=== PATIENT | female | born 1950 | race Two or more races ===

== ENCOUNTER 2025-03-21 09:40 | Outpatient (AMB) | payer MEDICARE, MEDICAID, SELFPAY ==
--- OUTSIDE RECORDS SUMMARY | 2025-03-18 10:45 | XMS_ITS | Encounter Summary ---
Author Organization [facility] Address [address] [place] [address] Care Team Providers Care Revenue Stamper Name Role Phone Parker Kyle MD Primary Care Provider [phone] Reason for Visit * Reason Comments Follow-up Pain * Consultation (Routine) - Authorized Specialty Diagnoses / Procedures Referred By Manjeet sanon Referred To Contact Orthopaedic Surgery Diagnoses Chronic right shoulder pain Arthritis of right shoulder Fay Piña, KAMLA [address] [place] [id number] Phone: tel: fax: Cliff Allen PA [address] [place] [phone] Phone: tel: fax: Referral ID Status Reason Start Date Expiration Date Visits Requested Visits Authorized [id number] Authorized Specialty Services Required 12/10/2024 12/10/2025 12 12 Encounter Details Date Type Department Care Team (Late st Contact Info) Description 03/18/2025 10:45 AM EST Office Visit Orthopedics - [address] [phone] Cliff Allen PA [address] [place] [phone] Chronic right shoulder pain (Primary Dx); Right-sided low back pain with right-sided sciatica, unspecified chronicity Social History Tobacco Use Types Packs/Day Years Used Date Smoking Tobacco: Never Smokeless Tobacco: Never Tobacco Cessation:Counseling Given: Not Answered Alcohol Use Standard Drinks/Week Comments No 0 (1 standard drink = 0.6 oz pur e alcohol) Interpersonal Safety Answer Date Record ed Physical Abuse Unrecognized value 03/12/2025 Verbal Abuse Unrecognized value 03/12/2025 Comments No Sex and Gender Information Value Date Recorded Sex Assigned at Female 03/12/2025 9:00 AM EST Legal Sex Female 1:53 PM EST Gender Identity Female 03/12/2025 9:00 AM EST Sexual Orientation Straight 03/12/2025 9: 00 AM EST documented as of this encounter Last Filed Vital Signs Vital Sign Reading Time Taken Comments Blood Pressure - - Pulse - - Temperature - - Respiratory Rate 16 03/18/2025 10:22 AM EST Oxygen Saturation - - Inhaled Oxygen Concentration - - Weight 68.5 kg (151 lb) 03/18/2025 10:22 AM EST Height 157.5 cm (5' 2 ) 03/18/2025 10:22 AM EST Body Mass Index 27.62 03/18/2025 10:22 AM EST documented in this encounter Progress Notes * MICHELET Trevino - 03/18/2025 10:45 AM EST CHIEF COMPLAINT: Follow-up and Pain of the Right Shoulder had concerns including Follow-up and Pain of the Right Shoulder. IDENTIFIER: Rohini Farah is a 74 y.o. old female. HPI: Rohini Farah is here for follow up on right shoulder pain. Patient returns today. Overall the right shoulder is pretty much completely better. Able to move the shoulder without any pain and perform activities without any issues. The right sided low back pain is improved but not resolved. Patient has ongoing physical therapy scheduled and is seeing physiatry in a few days PHYSICAL EXAM: Vitals: 03/18/25 1022 Resp: 16 Weight: 68.5 kg (151 lb) Height: 1.575 m (62 ) Patient demonstrates full pain-free range of motion of the right shoulder without any issues Currently IMPRESSION AND PLAN 1. Chronic right shoulder pain 2. Right-sided low back pain with right-sided sciatica, unspecified chronicity 1. Chronic right shoulder pain (Primary) Currently pain-free can observe 2. Right-sided low back pain with right-sided sciatica, unspecified chronicity Pain has reduced but still present. Will be following soon with physiatry No orders of the defined types were placed in this encounter. ROS: GENERAL: No malaise, significant weight loss or fever HEENT: No changes in hearing or vision, nose bleeds or other nasal problems NECK: No lumps, goiter, pain or significant neck swelling RESPIRATORY: No cough, wheezing or shortness of breath CARDIOVASCULAR: No chest pain, leg swelling or palpitations GI: No abdominal discomfort, blood in stools or black stools : No dysuria, frequency or incontinence MUSCULOSKELETAL: See HPI. SKIN: No lesions, rash or itching NEURO: No persistent headache, syncope, seizures, weakness or numbness Remainder of systems noncontributory. PAST MEDICAL HISTORY: Patient Active Problem List Diagnosis Date Noted History of colon cancer 03/14/2024 Asthma 02/06/2024 Dysphagia 02/06/2024 Overweight (BMI 25.0-29.9) 07/15/2021 Renal cyst, right 08/22/2017 Tubular adenoma of colon 08/22/2017 Primary osteoarthritis of right knee 06/08/2017 Chronic constipation 10/10/2012 Allergic rhinitis 10/13/2011 Glaucoma 09/05/2007 Diabetes mellitus type 2, uncomplicated ([facility] V24, [facility] V28) 03/21/2007 Pure hypercholesterolemia 03/21/2007 Surgical History[1] SOCIAL HISTORY: Social History Tobacco Use Smoking status: Never Smokeless tobacco: Never Substance Use Topics Alcohol use: No FAMILY HISTORY: Family History[2] MEDICATIONS DISCONTINUED/REORDERED: Medications Discontinued During This Encounter Medication Reason meclizine (ANTIVERT) 25 mg tablet Side effects ACTIVE MEDICATIONS: Medications Taking[3] ALLERGIES: Allergies[4] The details of the visit were reviewed with the patient. Pertinent history, and objective findings were reviewed, along with the diagnoses: Rohini Farah acknowledges understanding of the above plan and agrees to follow recommendations and/or take medications as prescribed. No follow-ups on file. MICHELET Trevino [1] Past Surgical History: Procedure Laterality Date BREAST BIOPSY PROCEDURE: BX BREAST; PERC NEEDLE CORE W/IMAG GUID; COMMENT: right x 2 BREAST LUMPECTOMY Right PROCEDURE: ---- BREAST LUMP BIOPSY ----; COMMENT: has had 2, last one done about 2013 CATARACT EXTRACTION Left 02/2017 PROCEDURE: HISTORICAL CATARACT REMOVAL COLON SURGERY 2014 COLONOSCOPY 11/18/2016 PROCEDURE: HISTORICAL COLONOSCOPY; COMMENT: repeat yearly, + colon cancer COLONOSCOPY 03/22/2019 PROCEDURE: HISTORICAL COLONOSCOPY; COMMENT: tiny polyp COLONOSCOPY 03/11/2021 PROCEDURE: HISTORICAL COLONOSCOPY; COMMENT: sigmoid tubular adenoma and diverticulosis EYE SURGERY PROCEDURE: TN TRABECULOPLASTY BY LASER SURGERY EYE SURGERY implants in eyes KNEE SURGERY Left 2006 PROCEDURE: HISTORICAL KNEE SURGERY; COMMENT: meniscus repair OTHER SURGICAL HISTORY 1983 PROCEDURE: TN INJECTION SINUS TRACT DIAGNOSTIC OTHER SURGICAL HISTORY 2013 PROCEDURE: TN COLECTOMY PARTIAL W/ANASTOMOSIS OVARIAN CYST REMOVAL 2000 PROCEDURE: TN OVARIAN CYSTECTOMY UNI/BI; COMMENT: adhesions - colon repair? PARTIAL HYSTERECTOMY 06/1989 PROCEDURE: TN SUPRACERVICAL ABDL HYSTER W/WO RMVL TUBE OVARY; COMMENT: Also had LSO [2] Family History Problem Relation Name Age of Onset Other (Other: skin cancer) Mother thyroid cancer Hypertension Father Other (Other: skin cancer) Sister ?unsure what kind Other (Other: prostate cancer) Brother No Known Problems Son Mental illness Son No Known Problems Daughter Other (Other: colon cancer) Other 2 nieces and one nephew; daughter of a cousin. Maternal Uterine cancer Other Tessie 32 Breast cancer Neg Hx Ovarian cancer Neg Hx [3] Outpatient Medications Marked as Taking for the 03/18/25 encounter (Office Visit) with MICHELET Trevino Medication Sig Dispense Refill Accu-Chek Softclix Lancets USE DIRECTED TO TEST BLOOD SUGAR TWO (2) TIMES A DAY. E11.9 - REPLACES ONETOUCH 100 each 12 acetaminophen (TYLENOL 8 HOUR) 650 mg 8 hr tablet Take 1 Tablet by mouth every 8 hours as needed for Pain. ascorbic acid (VITAMIN C) 1,000 mg tablet Take 1,000 mg by mouth daily. bisacodyL (DULCOLAX) 5 mg EC tablet Take 2 tablets by mouth right before beginning bowel prep. See instructions provided by the office 2 tablet 0 blood sugar diagnostic (Accu-Chek Guide test strips) test strip USED TEST BLOOD SUGAR TWO (2) TIMESA DAY. E11.9 - REPLACES ONETOUCH 200 each 5 blood-glucose meter (Accu-Chek Guide Glucose Meter) [facility] [place] DIRECTED TO TEST BLOOD SUGAR TWO (2) TIMES A DAY. E11.9 - REPLACES ONETOUCH 1 kit 0 cholecalciferol (VITAMIN D-3) 25 mcg (1,000 unit) tablet Take 1,000 Units by mouth daily. ibuprofen (ADVIL,MOTRIN) 600 mg tablet Take 1 tablet (600 mg total) by mouth every 6 (six) hours ifneeded for moderate pain. lidocaine (LIDODERM) 5 % patch Apply 1 patch topically 1 (one) time each day. Remove & discard patch within 12 hours or as directed by . 30 patch 0 metFORMIN XR (GLUCOPHAGE-XR) 500 mg 24 hr tablet TAKE 2 TABLETS IN THE MORNING AND 2 TABLETS IN THEEVENING WITH FOOD. 360 tablet 1 multivit-min/ferrous fumarate (MULTI VITAMIN ORAL) None Entered polyethylene glycol (Golytely) 236-22.74-6.74 -5.86 gram solution Take 4L by mouth once for one dose. May substitue any PEG. Starting at 2PM the day before your procedure drink 1 8oz glasses at your own pace until you complete half of the gallon. Finish 2nd half of the gallon at 8PM. 4000 mL 0 propylene glycol-glycerin (SOOTHE) 0.6-0.6 % dropperette apply to the eye daily as needed. RED YEAST RICE ORAL Take 2 capsules by mouth 2 (two) times a day. 240 mg Capsules simvastatin (ZOCOR) 20 mg tablet Take 1 tablet (20 mg total) by mouth at bedtime. [4] Allergies Allergen Reactions Morphine Sulfate Anaphylaxis Pseudoephedrine Hcl Itching documented in this encounter Plan of Treatment Upcoming Encounters Date Type Department Care Team (Late st Contact Info) Description 04/02/2025 11:30 AM EST Treatment [address] [phone] Ba Reyes, ROSA ELENA 04/05/2025 10:30 AM EST Treatment [address] [phone] Ba Reyes, ROSA ELENA 04/09/2025 10:15 AM EST Treatment [address] [phone] Ba Reyes, ELECTRICAL TECHNICIAN INSTRUCTOR 04/11/2025 10:15 AM EST Treatment [facility] [address] [phone] Ba Reyes, ELECTRICAL TECHNICIAN INSTRUCTOR 04/15/2025 11:15 AM EST Treatment [facility] [address] [phone] Eric Torres, PT [address] [place] [address] 06/18/2025 10:45 AM EDT Office Visit Endocrinology [address] [phone] Abby Alberto PA [address] [place] [address] 07/22/2025 11:30 AM EDT Office Visit Adult Medicine [address] [phone] Parker Kyle MD [address] [place] [address] 07/23/2025 1:20 PM EDT Appointment Radiology Department - [address] [phone] documented as of this encounter Goals Goal Patient Goal Type Associated Problems Recent Progress Patient-Stated? Author feel better General Improving( 10:50 AM EST) Yes Eric Torres, PT PT STG x 8 visits from [facility] on 01/23/2025 General No Eric Torres, PT Note: [x] = goal MET [] = goal NOT MET [x] Pt will improve lumbar flexion to 60 degrees to allow dressing LE without assist, [] Pt will report average pain level decrease of 2 /10, [] Pt will wake less than 1 a night due to back pain, [] Pt will require no assist in LE dressing due to back pain, [] Pt will be able to stand fully erect immediately after sit to stand [x] Pt will be able to perform a full range bridge to allow improved bed mobility Shoulder goals added: 02/13/2025 [] Pt will increase appleys scratch test IR to T 6 B to allow clasping bra, [x] Pt will be able to wash reach back of head to wash hair prn, [x] Pt will report an average shoulder pain level decrease of 2/10, [x] Pt will increase left shoulder abd active ROM to 90 degrees, [] Pt will increase right shoulder flexion active ROM to 160 degrees, [x] Pt will increase left shoulder flexion active ROM to 130 degrees, [x] Pt will improve bilaterally shoulder ER strength to 4+/5 , [x] Pt will improve right shoulder abd strength to 4+/5 [x] Pt will improve left shoulder abd strength to 4-/5 PT LTG x 16 visits from [facility] on 01/23/2025 General Improving( 10:50 AM EST) Eric Moreno, PT Note: [x] = goal MET [] = goal NOT MET [] Pt will be able to sit through a 60 movie, [] Pt will wake less than 3 times a wk due to back pain , [] Pt will be able to negotiate stairs reciprocally without limitation due to back pain , [] Pt will be able to stand fully erect immediately after sit to stand [] Pt will be able to rotate through trunk prn [] Pt will be able to demonstrate proper SPC technique [x] = goal MET [] = goal NOT MET Added 02/13/2025 [x] = goal MET [] = goal NOT MET [] Pt will be able to reach back seat with either shoulder, [] Pt will be able to reach overhead with either shoulder o turn on/off overhead lighting , [] Pt will be able to steer/drive with bilaterally UE, [] Pt will be able to reach top shelving with bilaterally UE in order to place/remove dishes , [] Pt will be able to open/close car door with involved UE prn, [] Pt will have no difficulty with seatbelt due to shoulder Sx, [] Pt will be able to vacuum at least 45 min without having to rest due to pain Autogenerated Goal Care Plan Autogenerated Problem No Zenaida Ortiz documented as of this encounter Visit Diagnoses Diagnosis Chronic right shoulder pain- Primary Pain in joint, shoulder region Right-sided low back pain with right-sided sciatica, unspecified chronicity documented in this encounter Discontinued Medications Medication Sig Discontinue Reason Start Date End Da te meclizine (ANTIVERT) 25 mg tablet Take 1 tablet (25 mg total) by mouth 3 (three) times a day if needed for dizziness. Side effects 12/25/2024 03/18/2025 documented as of this encounter Additional Health Concerns Active Problems Noted Date Diagnosed Date Autogenerated Problem 02/19/2025 Assessment Noted Time PHQ-9 Depression Total Score: 1 06/28/19 25 10:31 AM EDT A fall risk assessment has been complete d for the patient 06/27/2024 10:31 AM EDT documented as of this encounter Care Teams Revenue Stamper Relationship Specialty Start Date End Date Parker Kyle MD [address] [place] [phone] PCP - General Internal Medicine 07/09/20 documented as of this encounter
[2025-03-21 09:41] VITALS: BMI 27.4
--- NOTE | 2025-03-21 09:41 | A.PHYSOV_ITS ---
Vital Signs 03/21/25 09:41 Height 5 ft 2 in Weight 150 lb BMI 27.4 Intake Visit Reasons: NPV Radha Ref- rt sided low back w/sciatica Intake Note: Patient is a 74 year old female her for a new patient office visit. Patient has been referred for right lower back pain with sciatica. 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 She reports pain on the right side of her lower back, which sometimes radiates into her leg. She rates her pain as a 6 out of 10 today. The patient reports that the pain improves after she walks for a little while. She takes ibuprofen for the pain and has been attending physical therapy, which has provided some improvement. She has about five or six more physical therapy sessions scheduled. I reviewed the referring provider's no prior consultation. Pain Description - Location: Lower right back. - Radiation: Pain sometimes radiates into her leg. - Severity: The patient rates her current pain as 6 out of 10. - Alleviating Factors: Pain improves after walking for a short period. Results - Imaging: A prior X-ray of the back was performed, which only visualized the bone. [facility] Surgical History History of partial hysterectomy History of ovarian cystectomy H/O colectomy H/O: knee surgery History of eye surgery History of cataract surgery S/P breast lumpectomy Social History Alcohol intake: current Alcohol intake frequency: does not drink Patient Tobacco Use Status: Never used Tobacco Use of substances other than those prescribed or required for medical reasons: No Review of Systems Narrative Review of Systems - Musculoskeletal: Reports lower back pain. - Neurological: Reports pain radiating to the leg. Physical Exam Exam Exam: Physical Exam - Back: Tenderness to palpation over the lumbar spine. - Neurologic: Straight leg raise test elicits tension in one leg; the test is negative in the contralateral leg. - Musculoskeletal: Full strength with foot flexion/extension and thigh elevation bilaterally. Neurovascularly intact bilateral lower extremities. Vital Signs: BMI result Body Mass Index 27.4 Assessment & Plan Assessment & Plan (1) Lumbar radiculopathy: Code(s): M54.16 - Radiculopathy, lumbar region Category: Medical (2) Lumbar spondylosis: Code(s): M47.816 - Spondylosis without myelopathy or radiculopathy, lumbar region Category: Medical Plan Pain Management - Analgesia: The patient takes ibuprofen for pain and reports her current pain level is 6 out of 10. - Activities of Daily Living: The patient has been attending and improving with physical therapy. Plan Patient was informed and verbally consented to the use of an ambient scribe for clinic note documentation during this visit. 1. Low Back Pain The patient is advised to continue with physical therapy as a conservative treatment. She should schedule a follow-up appointment for approximately three weeks, after she has completed her remaining sessions. If the pain does not improve with therapy, an MRI of the lumbar spine will be ordered to further evaluate the discs, nerves, and spinal cord. Discussion Notes I discussed my recommendation to continue with physical therapy, explaining that it is a conservative treatment option that does not involve drugs or needles. I advised the patient to return for a follow-up visit if her pain does not improve after completing her course of therapy. I informed her that if her symptoms persist, I will order an MRI of her back for a more detailed assessment of the discs and nerves, explaining that this imaging is more comprehensive than her previous X-ray. The patient and her safety and security officer voiced understanding and had no further questions. Patient Instructions - Continue with your physical therapy as prescribed. - If your pain does not get better after you finish therapy, please call our office to schedule a follow-up appointment. - We can schedule your follow-up appointment for about 3 weeks from now. - If your pain continues, we will order an MRI scan of your back to get a better look at what might be causing it. Coding Level of Care Code Tele New Pt Level 4 (61249) Diagnoses Lumbar radiculopathy M54.16 Lumbar spondylosis M47.816
--- OUTSIDE RECORDS SUMMARY | 2025-03-21 11:22 | XMS_ITS | Clinical Summary ---
Author Organization Patient Business Ser [facility] [place] Address [address] [place] [address] Care Team Providers Care Culture Manager Name Role Phone Parker Kyle MD Primary Care Provider [phone] Allergies Active Allergy Reactions Criticality Noted Date Comments Morphine Sulfate Anaphylaxis High 10/31/2009 Pseudoephedrine Hcl Itching 03/21/2007 Medications acetaminophen (TYLENOL 8 HOUR) 650 mg 8 hr tablet Take 1 Tablet by mouth every 8 hours as needed for Pain. 11/09/19 24 Active cholecalciferol (VITAMIN D-3) 25 mcg (1,000 unit) tablet Take 1,000 Units by mouth daily. Active propylene glycol-glycerin (SOOTHE) 0.6-0.6 % dropperette apply to the eye daily as needed. Active ascorbic acid (VITAMIN C) 1,000 mg tablet Take 1,000 mg by mouth daily. Active multivit-min/fe rrous fumarate (MULTI VITAMIN ORAL) None Entered Active ibuprofen (ADVIL,MOTRIN) 600 mg tablet Take 1 tablet (600 mg total) by mouth every 6 (six) hours if needed for moderate pain. 10/12/19 24 Active lidocaine (LIDODERM) 5 % patchIndication s:Arthritis of right shoulder Apply 1 patch topically 1 (one) time each day. Remove & discard patch within 12 hours or as directed by MD. 30 patch 11/08/19 25 Active blood-glucose meter (Accu-Chek Guide Glucose Meter) miscIndications :Type 2 diabetes mellitus without complication, without long-term current use of insulin ([facility] V24, [facility] V28) USE DIRECTED TO TEST BLOOD SUGAR TWO (2) TIMES A DAY. E11.9 - REPLACES ONETOUCH 1 kit 11/23/19 25 Active Accu-Chek Softclix LancetsIndicati ons:Type 2 diabetes mellitus without complication, without long-term current use of insulin ([facility] V24, [facility] V28) USE DIRECTED TO TEST BLOOD SUGAR TWO (2) TIMES A DAY. E11.9 - REPLACES ONETOUCH 100 each 12 11/23/19 Active metFORMIN XR (GLUCOPHAGE-XR) 500 mg 24 hr tablet TAKE 2 TABLETS IN THE MORNING AND 2 TABLETS IN THE EVENING WITH FOOD. 360 tablet 1 01/22/20 Active RED YEAST RICE ORAL Take 2 capsules by mouth 2 (two) times a day. 240 mg Capsules Active blood sugar diagnostic (Accu-Chek Guide test strips) test stripIndication s:Type 2 diabetes mellitus without complication, without long-term current use of insulin ([facility] V24, [facility] V28) USED TEST BLOOD SUGAR TWO (2) TIMES A DAY. E11.9 - REPLACES ONETOUCH 200 each 5 02/15/20 Active polyethylene glycol (Golytely) 236-22.74-6.74 -5.86 gram solution Take 4L by mouth once for one dose. May substitue any PEG. Starting at 2PM the day before your procedure drink 1 8oz glasses at your own pace until you complete half of the gallon. Finish 2nd half of the gallon at 8PM. 4000 mL 02/27/20 25 Active bisacodyL (DULCOLAX) 5 mg EC tablet Take 2 tablets by mouth right before beginning bowel prep. See instructions provided by the office 2 tablet 02/27/20 25 Active simvastatin (ZOCOR) 20 mg tablet Take 1 tablet (20 mg total) by mouth at bedtime. Active meclizine (ANTIVERT) 25 mg tablet Take 1 tablet (25 mg total) by mouth 3 (three) times a day if needed for dizziness. 30 tablet 1 12/26/19 25 025 Discontin ued(Side effects) Active Problems Problem Noted Date Diagnosed Date History of colon cancer 03/14/2024 Asthma 02/06/2024 Dysphagia 02/06/2024 Overweight (BMI 25.0-29.9) 07/15/2021 Renal cyst, right 08/22/2017 Tubular adenoma of colon 08/22/2017 Overview (02/06/2024): multiple Primary osteoarthritis of right knee 06/08/2017 Chronic constipation 10/10/2012 Allergic rhinitis 10/13/2011 Glaucoma 09/05/2007 Diabetes mellitus type 2, uncomplicated 03/21/20 07 Overview (02/06/2024): Started 2004 Assessment & Plan (06/27/2024 11:00 AM EDT): Pure hypercholesterolemia 03/21/2007 Assessment & Plan (06/27/2024 11:00 AM EDT): Encounters Date Type Department Care Team Description 03/18/2025 10:45 AM EST Office Visit Orthopedics [address] [phone] Cliff Allen PA Chronic right shoulder pain (Primary Dx); Right-sided low back pain with right-sided sciatica, unspecified chronicity 03/13/2025 10:[address] [facility] [address] [phone] Eric Torres M, PT Right-sided low back pain with right-sided sciatica, unspecified chronicity (Primary Dx); Bilateral shoulder pain, unspecified chronicity 03/12/2025 9:55 AM EST Anesthesia Event [facility] End[facility] [address] [place] [address] Jeovanny Parks MD 03/12/2025 9:03 AM EST - 03/12/2025 11:59 PM EST Hospital Encounter [facility] [address] [place] [address] Judy William MD Georgette, Nathaniel, CRNA Dasilva, John E, MD History of colon cancer Discharge Disposition: Home or Self Care 03/06/2025 11:00 AM EST Treatment [address] [phone] Deni Lua PTA Right-sided low back pain with right-sided sciatica, unspecified chronicity (Primary Dx) 03/04/2025 10:30 AM EST [address] [phone] Ba Reyes, CLINICAL SOCIAL WORK AIDE Right-sided low back pain with right-sided sciatica, unspecified chronicity (Primary Dx); Bilateral shoulder pain, unspecified chronicity 02/27/2025 10:30 AM EST Treatment [address] [phone] Ba Reyes, CLINICAL SOCIAL WORK AIDE Right-sided low back pain with right-sided sciatica, unspecified chronicity (Primary Dx) 02/25/2025 10:30 AM EST Treatment [address] [phone] Ba Reyes, CLINICAL SOCIAL WORK AIDE Right-sided low back pain with right-sided sciatica, unspecified chronicity (Primary Dx); Bilateral shoulder pain, unspecified chronicity 02/18/2025 11:30 AM EST Treatment [address] [phone] Ba Reyes CLINICAL SOCIAL WORK AIDE Right-sided low back pain with right-sided sciatica, unspecified chronicity (Primary Dx); Bilateral shoulder pain, unspecified chronicity 02/15/2025 12:30 PM EST [address] [phone] Ba Reyes, CLINICAL SOCIAL WORK AIDE Right-sided low back pain with right-sided sciatica, unspecified chronicity (Primary Dx); Bilateral shoulder pain, unspecified chronicity 02/14/2025 10:30 AM EST Office Visit [address] [phone] Abby Alberto PA Type 2 diabetes mellitus without complication, without long-term current use of insulin (CMS/HCC V24, CMS/HCC V28) (Primary Dx); Pure hypercholesterolemia 02/13/2025 10:[address] [facility] [address] [phone] Melissa, Kvng, PT Right-sided low back pain with right-sided sciatica, unspecified chronicity (Primary Dx); Bilateral shoulder pain, unspecified chronicity 02/12/2025 Telephone Endocrinology [address] [phone] Abby Alberto PA 02/11/2025 2:58 PM EST - 02/11/2025 8:30 PM EST Emergency [facility] Emergency [address] [place] [phone] Discharge Disposition: Left Against Medical Advice 02/04/2025 11:30 AM EST Office Visit Orthopedics [address] [phone] Cliff Allen PA Chronic right shoulder pain (Primary Dx); Acute pain of left shoulder 01/30/2025 Results Follow-Up [address] [phone] Abby Alberto PA 01/24/2025 11:00 AM EDT Office Visit Adult Medicine [address] [phone] Yoanna Tolentino PA Type 2 diabetes mellitus with other specified complication, unspecified whether predatory animal exterminator insulin use (CMS/HCC V24, CMS/HCC V28) (Primary Dx); Pure hypercholesterolemia; Adverse effect of vaccine, initial encounter 01/23/2025 12:[address] [facility] [address] [phone] Melissa, Kvng, PT Right-sided low back pain with right-sided sciatica, unspecified chronicity 12/25/2024 10:30 AM EDT Office Visit Adult Medicine [address] [phone] Fay Piña NP Dizziness (Primary Dx); Vertigo 12/24/2024 10:59 AM EDT - 12/24/2024 11:59 PM EDT Hospital Encounter XRAY [address] [phone] Right-sided low back pain with right-sided sciatica, unspecified chronicity Discharge Disposition: Home or Self Care 12/24/2024 10:45 AM EDT Office Visit Orthopedics [address] [phone] Cliff Allen PA Chronic right shoulder pain (Primary Dx); Right-sided low back pain with right-sided sciatica, unspecified chronicity 12/24/2024 Nurse Triage [address] [phone] Parker Kyle MD from Last 3 Months Immunizations Immunization Administration Dates Next Due Influenza trivalent, 0.5mL ( Fluad) 65yo and older 01/22/2022,01/14/2021,12/29/2019,01/06,01/11/2018,01/21/2017 Influenza trivalent, 0.5mL ( Fluzone High-dose) 65yo and older 01/19/2025 Influenza trivalent, 0.5mL, preservative free (Fluarix; FluLaval; Fluzone) ages 6mo and older (Afluria) 3 years and older 12/29/2019,01/05/2016,01/19/2015,01/15,01/02/2013,01/31/2012,01/04/2011 ,02/06/2010,12/24/2008,01/10/2008 Influenza, Unspecified 12/10/2022 Pneumococcal conjugate 13 va lent (Prevnar 13, PCV13) 2mo and older 08/29/2014 Pneumococcal polysaccharide 23 valent (Pneumovax 23) 2yo and older 07/15/2021,07/20/2018,03/21/2007 Tdap Tetanus diptheria acell ular pertussis (Boostrix; Adacel) 7yo and older 03/21/2007 Zoster Live 08/30/2012 Zoster recombinant (Shingrix ) 19yo and older 03/12/2022,12/18/2021 Surgical History Surgery Date Site/Laterality Comments PARTIAL HYSTERECTOMY 06/1989 PROCEDURE: AK SUPRACERVICAL ABDL HYSTER W/WO RMVL TUBE OVARY; COMMENT: Also had LSO OVARIAN CYST REMOVAL 2000 PROCEDURE: AK OVARIAN CYSTECTOMY UNI/BI; COMMENT: adhesions - colon repair? OTHER SURGICAL HISTORY 1983 PROCEDURE: AK INJECTION SINUS TRACT DIAGNOSTIC EYE SURGERY PROCEDURE: AK TRABECULOPLASTY BY LASER SURGERY OTHER SURGICAL HISTORY 2013 PROCEDURE: AK COLECTOMY PARTIAL W/ANASTOMOSIS KNEE SURGERY 2006 Left PROCEDURE: HISTORICAL KNEE SURGERY; COMMENT: meniscus repair CATARACT EXTRACTION 02/2017 Left PROCEDURE: HISTORICAL CATARACT REMOVAL BREAST LUMPECTOMY Right PROCEDURE: ---- BREAST LUMP BIOPSY ----; COMMENT: has had 2, last one done about 2013 COLONOSCOPY 11/18/2016 PROCEDURE: HISTORICAL COLONOSCOPY; COMMENT: repeat yearly, + colon cancer BREAST BIOPSY PROCEDURE: BX BREAST; PERC NEEDLE CORE W/IMAG GUID; COMMENT: right x 2 COLONOSCOPY 03/22/2019 PROCEDURE: HISTORICAL COLONOSCOPY; COMMENT: tiny polyp COLONOSCOPY 03/11/2021 PROCEDURE: HISTORICAL COLONOSCOPY; COMMENT: sigmoid tubular adenoma and diverticulosis COLON SURGERY 04/04/2013 - 04/03/2014 EYE SURGERY implants in eyes Medical History Medical History Date Comments Allergic rhinitis 10/13/2011 DX:Allergic rh initis Asthma DX:Asthma Chronic constipation 10/10/2012 DX:Chronic constipation Diabetes mellitus type 2, uncomplicated (CMS/HCC V24, CMS/HCC V28) 03/21/2007 DX:Diabetes mellitus type 2, uncomplicated ([facility]); COMMENT: Started 2004 Glaucoma 09/05/2007 DX:Glaucoma History of colon cancer 05/23/2013 DX:Histo ry of colon cancer; COMMENT: 2013 stage II colon cancer treated with transverse colectomy, also stage I adenocarcinoma in polyp removed from ascending colon July 2014. History of diverticulitis 04/04/2016 DX:His tory of diverticulitis; COMMENT: treated with diet changes Obesity 03/21/2007 DX:Obesity Osteoarthritis of right knee 06/08/2017 DX: Osteoarthritis of right knee Pure hypercholesterolemia 03/21/2007 DX:Pur e hypercholesterolemia Renal cyst, right 08/22/2017 DX:Renal cyst, right Tubular adenoma of colon 08/22/2017 DX:Tubu lar adenoma of colon; COMMENT: multiple David syndrome DX:David syndrom e Straining with stools DX:Straini ng with stools Dysphagia DX:Dysphagia Colon polyps DX:Colon polyps Colon cancer (CMS/HCC V24, C MS/HCC V28) Family History Medical History Relation Name Comments Other: prostate cancer Brother 1 No Known Problems Daughter 1 Hypertension Father Other: skin cancer Mother thyroid c ancer Other: colon cancer Other 1 2 nieces and one nephew; daughter of a cousin. Maternal Uterine cancer Other 2 Tessie Other: skin cancer Sister 1 ?unsure w hat kind No Known Problems Son 1 Mental illness Son 2 Breast cancer Neg Hx Ovarian cancer Neg Hx Relation Name Status Comments Brother 1 Alive hypoglycimia Brother 2 Alive healthy Brother 3 Alive alcoholic Brother 4 (Age 1 mth old) pne umo Brother 5 (Age 22) apendisiti s Daughter 1 Alive ovarian cyst Daughter 2 (Age 28) Father arthritis,HTN Maternal Grandfather Maternal Grandmother Mother emphazima,thyro id Other 1 Other 2 Tessie Alive Paternal Grandfather Paternal Grandmother (Age 50's) Sister 1 Alive clem,thyroid,r umatoid arthritis, Sister 2 Alive thyroid Sister 3 Alive ? clem,hernia Sister 4 Alive healthy Sister 5 Alive healthy Sister 6 (Age 42) liver prob stephanie Son 1 Alive heathy Son 2 Alive kidney problem Social History Tobacco Use Types Packs/Day Years [...] Orientation Straight 03/12/2025 9: 00 AM EST Obstetrics History Para Term AB IAB SAB Ectopic Multiple Livin g Live Births 4 4 4 3 Date Outcome GA Total Labor Labor/2nd/3rd Weight Sex Type Anes PTL Dana A1 A5 Name Clin Term Term Term Term Last Filed Vital Signs Vital Sign Reading Time Taken Comments Blood Pressure 119/66 03/12/2025 10:38 AM EST Pulse 73 03/12/2025 10:38 AM EST Temperature 36 C (96.8 F) 03/12/2025 9:42 AM EST Respiratory Rate 16 03/18/2025 10:22 AM EST Oxygen Saturation 100% 03/12/2025 10:38 AM EST Inhaled Oxygen Concentration - - Weight 68.5 kg (151 lb) 03/18/2025 10:22 AM EST Height 157.5 cm (5' 2 ) 03/18/2025 10:22 AM EST Body Mass Index 27.62 03/18/2025 10:22 AM EST Plan of Treatment Upcoming Encounters Date Type Department Care Team (Late st Contact Info) Description 04/02/2025 11:[address] [facility] [address] [phone] Ba Reyes, CLINICAL SOCIAL WORK AIDE 04/05/2025 10:[address] [facility] [address] [phone] Ba Reyes, CLINICAL SOCIAL WORK AIDE 04/09/2025 10:[address] [facility] [address] [phone] Ba Reyes, CLINICAL SOCIAL WORK AIDE 04/11/2025 10:[address] [facility] [address] [phone] Ba Reyes, CLINICAL SOCIAL WORK AIDE 04/15/2025 11:[address] [facility] [address] [phone] Eric Torres, PT [address] [place] [address] 06/18/2025 10:45 AM EDT Office Visit [address] [phone] Abby Alberto PA [address] [place] [address] 07/22/2025 11:30 AM EDT Office Visit [facility] - [address] [phone] Pakrer Kyle MD [address] [place] [address] 07/23/2025 1:20 PM EDT Appointment Radiology Department - [address] [phone] Health Maintenance Due Date Last Done Comments DTaP,Tdap,and Td Vaccines (2 - Td or Tdap) 03/21/2017 03/21/2007 Social Influencers of Health Screening 06/03/2020 RSV Immunization Adult Patients (1 - 1-dose 75+ series) 11/06/2023 Diabetes: Annual Retina Eye Exam 06/09/2024 06/10/2023 COVID-19 Vaccine ( season) 2024 02/06/2021, 07/28/2020, 06/30/2020 Diabetes: Annual Foot Exam 05/02/2025 05/02/2024 Diabetes: Annual Urine Albumin-Creatinine Ratio (uACR) 05/21/2025 05/21/2024, 05/30/2023 Medicare Annual Wellness Visit 06/27/2025 06/27/2024 Diabetes: Blood Sugar Control Test (HGBA1C) 07/30/2025 01/29/2025, 07/19/2024, 05/21/2024, Additional history exists Diabetes: Annual GFR (Glomerular Filtration Rate) 01/29/2026 01/29/2025, 05/21/2024, 11/23/2023, Additional history exists Falls Risk Assessment 03/12/2026 03/12/2025 , 06/27/2024, 06/27/2024 Colorectal Cancer Screening: Colonoscopy 03/12/2027 03/12/2025, 03/08/2023 Cholesterol Screening (Lipid Panel) 01/29/2030 01/29/2025, 05/21/2024, 05/30/2023 Osteoporosis Screening (Bone Density Screening) 07/17/2034 07/17/2024 Hepatitis C Screening Completed 04/14/2017 Pneumococcal Vaccine: 50+ Years Completed 07/15/2021, 07/20/2018, 08/29/2014, Additional history exists Zoster Vaccines Completed 03/12/2022, 12/03, 08/30/2012 Depression Screening Completed 06/27/2024, 05/30/19 Breast Cancer Screening Discontinued 07/18/19, 02/08/2022, 02/02/2021, Additional history exists Influenza Vaccine Completed 01/19/2025, , 12/10/2022, Additional history exists HIB Vaccines Aged Out No longer eligi ble based on patient's age to complete this topic HPV Vaccines Aged Out No longer eligi ble based on patient's age to complete this topic Hepatitis A Vaccines Aged Out No long er eligible based on patient's age to complete this topic Hepatitis B Vaccines Aged Out No long er eligible based on patient's age to complete this topic IPV Vaccines Aged Out No longer eligi ble based on patient's age to complete this topic MMR Vaccines Aged Out No longer eligi ble based on patient's age to complete this topic Meningococcal ACWY Vaccine Aged Out N o longer eligible based on patient's age to complete this topic Meningococcal B Vaccine Aged Out No l onger eligible based on patient's age to complete this topic RSV Immunization Patients Under 20 months Aged Out No longer eligible based on patient's age to complete this topic Varicella Vaccines Aged Out No longer eligible based on patient's age to complete this topic Goals Goal Patient Goal Type Associated Problems Recent Progress Patient-Stated? Author feel better General Improving( 10:50 AM EST) Yes Eric Torres, PT PT STG x 8 visits from [facility] on 01/23/2025 General No Eric Torres, PT [...] 4-/5 PT LTG x 16 visits from [facility] on 01/23/2025 General Improving( 10:50 AM EST) [...] Care Plan Autogenerated Problem No Zenaida Ortiz Procedures Procedure Name Priority Date/Time Associated Diagnosis Comments COLONOSCOPY Routine 03/12/2025 10:17 AM EST History of colon cancer TISSUE EXAM Routine 03/12/2025 10:11 AM EST History of colon cancer HEMOGLOBIN A1C Routine 01/29/2025 8:00 AM EDT Type 2 diabetes mellitus with other specified complication, unspecified whether predatory animal exterminator insulin use (CMS/HCC V24, CMS/HCC V28) COMPREHENSIVE METABOLIC PANEL Routine 01/29/2025 8:00 AM EDT Type 2 diabetes mellitus with other specified complication, unspecified whether predatory animal exterminator insulin use (CMS/HCC V24, CMS/HCC V28) LIPID PANEL WITH REFLEX TO DIRECT LDL Routine 01/29/2025 8:00 AM EDT Type 2 diabetes mellitus with other specified complication, unspecified whether predatory animal exterminator insulin use (CMS/HCC V24, CMS/HCC V28) Pure hypercholesterolemia XR LUMBAR SPINE 4+ VIEWS Routine 12/24/2024 11:13 AM EDT Right-sided low back pain with right-sided sciatica, unspecified chronicity BD BONE DENSITY DXA AXIAL SKELETON Routine 07/17/2024 2:43 PM EDT Encounter for screening for osteoporosis MG MAMMO DIGITAL SCREENING W CURTIS BILAT Routine 07/17/2024 2:31 PM EDT Encounter for screening mammogram for breast cancer MICROALBUMIN CREATININE URINE RATIO Routine 05/21/2024 7:58 AM EST Type 2 diabetes mellitus without complication, without long-term current use of insulin (CMS/HCC V24, CMS/HCC V28) DIABETES EYE EXAM Routine 06/10/2023 DEPRESSION SCREENING Routine 05/30/2023 HEPATITIS C SCREENING Routine 04/14/2017 from Last 3 Months or Most Recently Relevant to Health Maintenance Results * COLONOSCOPY Anesthesia - MAC; [facility] ENDOSCOPY (03/12/2025 10:17 AM EST) Anatomical Region Laterality Modality Endoscopy 03/12/2025 9:54 AM EST Impressions 03/12/2025 10:18 AM EST - One diminutive polyp in the cecum, removed with a jumbo cold forceps. Resected and retrieved. - Stool in the ascending colon. - Severe diverticulosis in the sigmoid colon. There was narrowing of the colon in association with the diverticular opening. There was evidence of diverticular spasm. - Patent end-to-end colo-colonic anastomosis, characterized by healthy appearing mucosa. - Internal hemorrhoids. Recommendation: - Await pathology results. - Repeat colonoscopy in 2 years for surveillance. Narrative 03/12/2025 10:18 AM EST [facility] GI Patient Name: Rohini Farah Procedure Date: 03/12/2025 9:54 AM Date of : 1950 Age: 74 Gender: Female Note Status: Finalized Attending MD: Judy William MD, Procedure Date No Time: 03/12/2025 Procedure: Colonoscopy Indications: David Syndrome Providers: Judy William MD Referring MD: Judy William MD Medicines: Monitored Anesthesia Care Complications: No immediate complications. Estimated blood loss: Minimal. Estimated Blood Loss: Estimated blood loss was minimal. Procedure: Pre-Anesthesia Assessment: - Prior to the procedure, a History and Physical was performed, and patient medications and allergies were reviewed. The patient is competent. The risks and benefits of the procedure and the sedation options and risks were discussed with the patient. All questions were answered and informed consent was obtained. Patient identification and proposed procedure were verified by the physician, the nurse, the upholstery restorer and the specimen technician in the pre-procedure area in the endoscopy suite. Mental Status Examination: alert and oriented. Airway Examination: normal oropharyngeal airway and neck mobility. Respiratory Examination: clear to auscultation. CV Examination: normal. Prophylactic Antibiotics: The patient does not require prophylactic antibiotics. Prior Anticoagulants: The patient has taken no anticoagulant or antiplatelet agents. ASA Grade Assessment: II - A patient with mild systemic disease. After reviewing the risks and benefits, the patient was deemed in satisfactory condition to undergo the procedure. The anesthesia plan was to use monitored anesthesia care (MAC). Immediately prior to administration of medications, the patient was re-assessed for adequacy to receive sedatives. The heart rate, respiratory rate, oxygen saturations, blood pressure, adequacy of pulmonary ventilation, and response to care were monitored throughout the procedure. The physical status of the patient was re-assessed after the procedure. After I obtained informed consent, the scope was passed under direct vision. Throughout the procedure, the patient's blood pressure, pulse, and oxygen saturations were monitored continuously. The Colonoscope was introduced through the anus and advanced to the cecum, identified by appendiceal orifice and ileocecal valve. The colonoscopy was performed with difficulty due to multiple diverticula in the colon. The patient tolerated the procedure well. The quality of the bowel preparation was good except the ascending colon was fair. Findings: The perianal and digital rectal examinations were normal. A diminutive polyp was found in the cecum. The polyp was sessile. The polyp was removed with a jumbo cold forceps. Resection and retrieval were complete. Estimated blood loss was minimal. A moderate amount of stool was found in the ascending colon, interfering with visualization. Lavage of the area was performed using a moderate amount of normal saline, resulting in incomplete clearance with fair visualization. Multiple small and large-mouthed diverticula were found in the sigmoid colon. There was narrowing of the colon in association with the diverticular opening. There was evidence of diverticular spasm. There was evidence of a prior end-to-end colo-colonic anastomosis in the sigmoid colon. This was patent and was characterized by healthy appearing mucosa. The anastomosis was traversed. Internal hemorrhoids were found during retroflexion. The hemorrhoids were Grade I (internal hemorrhoids that do not prolapse). Procedure Code(s): --- Professional --- 09878, Colonoscopy, flexible; with biopsy, single or multiple Diagnosis Code(s): --- Professional --- Z15.09, Genetic susceptibility to other malignant neoplasm D12.0, Benign neoplasm of cecum CPT copyright 2020 [employer]. All rights reserved. The codes documented in this report are preliminary and upon attendant children's institution review may be revised to meet current compliance requirements. Judy William MD 03/12/2025 10:18:09 AM This report has been signed electronically.Judy William MD Number of Addenda: 0 Note Initiated On: 03/12/2025 9:54 AM Scope Withdrawal Time: 0 hours 6 minutes 4 seconds Scope In: 10:00:50 AM Scope Out: 10:15:49 AM Endoscopy Department at [facility] - [address] [place] [id number] Procedure Note Judy William MD - 03/12/2025 [facility] GI Patient Name: Rohini Farah Procedure Date: 03/12/2025 9:54 AM Date of : 1950 Age: 74 Gender: Female Note Status: Finalized Attending MD: Judy William MD, Procedure Date No Time: 03/12/2025 Procedure: Colonoscopy Indications: David Syndrome Providers: Judy William MD Referring MD: Judy William MD Medicines: Monitored Anesthesia Care Complications: No immediate complications. Estimated blood loss: Minimal. Estimated Blood Loss: Estimated blood loss was minimal. Procedure: Pre-Anesthesia Assessment: - Prior to the procedure, a History and Physicalwas performed, and patient medications and allergieswere reviewed. The patient is competent. The risks and benefits of the procedure and the sedation optionsand risks were discussed with the patient. Allquestions were answered and informed consent was obtained. Patient identification and proposed procedure were verified by the physician, the nurse, theanesthetist and the specimen technician in the pre-procedure area in the endoscopy suite. Mental Status Examination: alertand oriented. Airway Examination: normal oropharyngeal airway and neck mobility. Respiratory Examination: clear to auscultation. CV Examination: normal. Prophylactic Antibiotics: The patient does notrequire prophylactic antibiotics. Prior Anticoagulants: The patient has taken no anticoagulant or antiplatelet agents. ASA Grade Assessment: II - A patient withmild systemic disease. After reviewing the risks and benefits, the patient was deemed in satisfactory condition to undergo the procedure. The anesthesia plan was to use monitored anesthesia care (MAC). Immediately prior to administration of medications, the patient was re-assessed for adequacy to receive sedatives. The heart rate, respiratory rate, oxygen saturations, blood pressure, adequacy of pulmonary ventilation, and response to care were monitored throughout the procedure. The physical status ofthe patient was re-assessed after the procedure. After I obtained informed consent, the scope was passed under direct vision. Throughout theprocedure, the patient's blood pressure, pulse, and oxygen saturations were monitored continuously. The Colonoscope was introduced through the anus and advanced to the cecum, identified by appendiceal orifice and ileocecal valve. The colonoscopy was performed with difficulty due to multiplediverticula in the colon. The patient tolerated the procedure well. The quality of the bowel preparation was good except the ascending colon was fair. Findings: The perianal and digital rectal examinations were normal. A diminutive polyp was found in the cecum. Thepolyp was sessile. The polyp was removed with a jumbocold forceps. Resection and retrieval were complete. Estimated blood loss was minimal. A moderate amount of stool was found in theascending colon, interfering with visualization. Lavage ofthe area was performed using a moderate amount ofnormal saline, resulting in incomplete clearance with fair visualization. Multiple small and large-mouthed diverticula were found in the sigmoid colon. There was narrowing ofthe colon in association with the diverticular opening. There was evidence of diverticular spasm. There was evidence of a prior dyu-fy-jqkydow-colonic anastomosis in the sigmoid colon. This was patentand was characterized by healthy appearing mucosa. The anastomosis was traversed. Internal hemorrhoids were found duringretroflexion. The hemorrhoids were Grade I (internal hemorrhoids that do not prolapse). Procedure Code(s): --- Professional --- 92652, Colonoscopy, flexible; with biopsy, singleor multiple Diagnosis Code(s): --- Professional --- Z15.09, Genetic susceptibility to other malignant neoplasm D12.0, Benign neoplasm of cecum CPT copyright 2020 [employer]. All rights reserved. The codes documented in this report are preliminary and upon attendant children's institution reviewmay be revised to meet current compliance requirements. Judy William MD 03/12/2025 10:18:09 AM This report has been signed electronically.Judy William MD Number of Addenda: 0 Note Initiated On: 03/12/2025 9:54 AM Scope Withdrawal Time: 0 hours 6 minutes 4 seconds Scope In: 10:00:50 AM Scope Out: 10:15:49 AM Endoscopy Department at [facility] - [address] [place] [id number] IMPRESSION: - One diminutive polyp in the cecum, removed with a jumbo cold forceps. Resected and retrieved. - Stool in the ascending colon. - Severe diverticulosis in the sigmoid colon. There was narrowing of the colon in association with the diverticular opening. There was evidence of diverticular spasm. - Patent end-to-end colo-colonic anastomosis, characterized by healthy appearing mucosa. - Internal hemorrhoids. Recommendation: - Await pathology results. - Repeat colonoscopy in 2 years for surveillance. Judy William MD GI~PROCEDURE ORDERABLES Fin al Result * Tissue exam (03/12/2025 10:11 AM EST) Final Diagnosis Cecum, polyp: Tubular adenoma. 03/13/2025 10:45 AM EST [facility] at 1045 EST Gross Description A. Large Intestine, Cecum, polyp x1: Labeled colon, cecum polyp x 1 . Received in formalin, is an approximately 0.7 cm in greatest diameter soft to rubbery, rios-pink to red, polypoid tissue fragment, inked green at the margin, which is wrapped in paper and submitted in toto in one cassette, one piece, multiple levels. hs/DG 03/13/2025 10:45 AM EST [facility] Disclaimer Unless otherwise specified, all tissue is 10% NB formalin fixed and paraffin embedded. 03/13/2025 10:45 AM EST [facility] Tissue Cecum structure / Unknown 03/12/2025 10:11 AM EST 03/12/2025 10:57 AM EST us Judy William MD LAB PATHOLOGY ORDERABLES Fi nal Result [facility] [address] [place] [address], [place] [phone] * (ABNORMAL) Lipid panel with reflex to direct LDL (01/29/2025 8:00 AM EDT) Cholesterol 200 0 - 200 mg/dL LAB CHEMISTRY METHOD 01/29/2025 10:43 AM EDT [facility] Triglycerides 94 0 - 150 mg/dL LAB CHEMISTRY METHOD 01/29/2025 10:43 AM EDT [facility] HDL 71 >=40 mg/dL LAB CHEMISTRY METHOD 01/29/2025 10:43 AM EDT [facility] LDL Calculated 110(H) 0 - 100 mg/dL LAB CHEMISTRY METHOD 01/29/2025 10:43 AM EDT [facility] Comment:Estimated LDL Calcul ated using equation: Total cholesterol - HDL cholesterol - (Triglycerides/5) VLDL Cholesterol Aashish 18.8 mg/dL LAB CHEMISTRY METHOD 01/29/2025 10:43 AM EDT [facility] Non HDL Chol. (LDL+VLDL) 129 <145 mg/dL LAB CHEMISTRY METHOD 01/29/2025 10:43 AM EDT [facility] Chol/HDL Ratio 2.8 0.0 - 4.4 LAB CHEMISTRY METHOD 01/29/2025 10:43 AM [facility] Blood Venous blood specimen / Unknown Venipuncture / Unknown 01/29/2025 8:00 AM EDT 01/29/2025 8:00 AM EDT Yoanna TAFOYA LAB BLOOD ORDERABLES Fi nal Result [facility] [address] [place] [address], [place] [phone] * (ABNORMAL) Hemoglobin A1c (01/29/2025 8:00 AM EDT) Hemoglobin A1C 7.6(H) <6.5 % LAB CHEMISTRY METHOD 01/29/2025 11:07 AM [facility] Mean Bld Glu Estim. 171 mg/dL LAB CHEMISTRY METHOD 01/29/2025 11:07 AM [facility] Blood Venous blood specimen / Unknown Venipuncture / Unknown 01/29/2025 8:00 AM EDT 01/29/2025 8:00 AM EDT us Yoanna TAFOYA LAB BLOOD ORDERABLES Fi nal Result [facility] [address] [place] [address], * (ABNORMAL) Comprehensive metabolic panel (01/29/2025 8:00 AM EDT) Sodium 140 133 - 145 mmol/L LAB CHEMISTRY METHOD 01/29/2025 10:43 AM [facility] Potassium 3.9 3.5 - 5.5 mmol/L LAB CHEMISTRY METHOD 01/29/2025 10:43 AM [facility] Chloride 104 96 - 110 mmol/L LAB CHEMISTRY METHOD 01/29/2025 10:43 AM [facility] CO2 30 21 - 32 mmol/L LAB CHEMISTRY METHOD 01/29/2025 10:43 AM [facility] Anion Gap 6 3 - 11 LAB CHEMISTRY METHOD 01/29/2025 10:43 AM [facility] Glucose 116(H) 70 - 100 mg/dL LAB CHEMISTRY METHOD 01/29/2025 10:43 AM [facility] BUN 22 5 - 25 mg/dL LAB CHEMISTRY METHOD 01/29/2025 10:43 AM [facility] Creatinine 0.67 0.50 - 1.10 mg/dL LAB CHEMISTRY METHOD 01/29/2025 10:43 AM [facility] eGFR 91 >=60 mL/min/1. 73m2 LAB CHEMISTRY METHOD 01/29/2025 10:43 AM [facility] Comment:Calculation based on the Chronic Kidney Disease Epidemiology Collaboration (CKD-EPI) equation refit without adjustment for race. BUN/Creatinine Ratio 32.8 LAB CHEMISTRY METHOD 01/29/2025 10:43 AM [facility] Calcium 9.6 8.5 - 10.5 mg/dL LAB CHEMISTRY METHOD 01/29/2025 10:43 AM [facility] AST (SGOT) 19 10 - 42 unit/L LAB CHEMISTRY METHOD 01/29/2025 10:43 AM [facility] ALT (SGPT) 29 10 - 60 unit/L LAB CHEMISTRY METHOD 01/29/2025 10:43 AM [facility] Alkaline Phosphatase 105 42 - 121 unit/L LAB CHEMISTRY METHOD 01/29/2025 10:43 AM [facility] Total Protein 7.5 6.0 - 8.0 g/dL LAB CHEMISTRY METHOD 01/29/2025 10:43 AM [facility] Albumin 3.8 3.2 - 5.0 g/dL LAB CHEMISTRY METHOD 01/29/2025 10:43 AM [facility] Total Bilirubin 0.3 0.0 - 1.4 mg/dL LAB CHEMISTRY METHOD 01/29/2025 10:43 AM [facility] Blood Venous blood specimen / Unknown Venipuncture / Unknown 01/29/2025 8:00 AM EDT 01/29/2025 8:00 AM EDT us Yoanna TAFOYA LAB BLOOD ORDERABLES Fi nal Result [facility] [address] [place] [address], * XR Lumbar Spine 4+ Views (12/24/2024 11:13 AM EDT) Anatomical Region Laterality Modality Spine, L-spine Radiographic Radha ging 12/24/2024 12:2 7 PM EDT Impressions 12/24/2024 12:32 PM EDT Multilevel degenerative changes. -------- FINAL REPORT -------- Dictated By: Zoey Dennis Dictated Date: 12/24/2024 12:27 ET Assigned Physician: Zoey Dennis Reviewed and Electronically Signed By: Zoey Dennis Signed Date: 12/24/2024 12:32 ET Workstation ID: [id number] Transcribed By: Self Edit Transcribed Date: 12/24/2024 12:27 ET Narrative 12/24/2024 12:32 PM EDT EXAM: Lumbar spine x-ray HISTORY: Right low back pain with right sciatica. COMPARISON: None, correlation with CT abdomen and pelvis 12/21/2022 FINDINGS: 4 views of the lumbar spine were performed. 5 lumbar type vertebral bodies. No new compression deformities. Mild diffuse disc space narrowing. Multilevel endplate spurring with bridging endplate osteophytes in the upper spine. No evidence of spondylolysis. Facet arthropathy in the lower spine. Minimal anterolisthesis of L4 on L5. Suture material involving splenic flexure colon. Procedure Note Zoey Dennis MD - 12/24/2024 EXAM: Lumbar spine x-ray HISTORY: Right low back pain with right sciatica. COMPARISON: None, correlation with CT abdomen and pelvis 12/21/2022 FINDINGS: 4 views of the lumbar spine were performed. 5 lumbar type vertebral bodies. No new compression deformities. Milddiffuse disc space narrowing. Multilevel endplate spurring with bridgingendplate osteophytes in the upper spine. No evidence of spondylolysis.Facet arthropathy in the lower spine. Minimal anterolisthesis of L4 on L5.Suture material involving splenic flexure colon. IMPRESSION: Multilevel degenerative changes. -------- FINAL REPORT -------- Dictated By: Zoey Dennis Dictated Date: 12/24/2024 12:27 ET Assigned Physician: Zoey Dennis Reviewed and Electronically Signed By: Zoey Dennis Signed Date: 12/24/2024 12:32 ET Workstation ID: [id number] Transcribed By: Self Edit Transcribed Date: 12/24/2024 12:27 ET Cliff TAFOYA IMG XR PROCEDURES Final Result * BD Bone Density DXA Axial Skeleton (07/17/2024 2:43 PM EDT) Anatomical Region Laterality Modality Wrist, Hip, L-spine Bone Densito metry 07/17/2024 3:31 PM EDT Impressions 07/17/2024 3:32 PM EDT Impression: This patient is considered to have osteopenia by WHO criteria. This patient has a 7.8% risk of major osteoporotic fracture and a 2.0% risk of hip fracture over the next 10 years. (World Health Organization Fracture Risk Assessment) [facility] Department of Internal Medicine recommends using National Osteoporosis Foundation (NOF) guidelines in treatment decisions related to osteoporosis. NOF guidelines suggest considering treatment for postmenopausal women and men aged 50 or older presenting with the following: History of hip or vertebral fracture. T-score = -2.5 (DXA) at the femoral neck, total hip, or spine, after appropriate evaluation to exclude secondary causes. Low bone mass (T-score between -1.0 and -2.5 at the femoral neck or spine) AND a 10-year probability of a hip fracture = 3% OR a 10-year probability of a major osteoporosis-related fracture = 20% based on the [place]-adapted WHO algorithm Please note that all treatment decisions require clinical judgment and consideration of individual patient factors, including patient preferences, co-morbidities, previous drug use, risk factors not captured in the FRAX model (e.g., frailty, falls, vitamin D deficiency, increased bone turnover, interval significant decline in bone density) and possible under- or over-estimation of fracture risk by FRAX. Optional alternative screening schedule based on shari Estrella., BANNER April 22, 2011 for patients with osteopenia (based on hip BMD T-score) is as follows: * advanced osteopenia (T scores -2.00 to -2.49), BMD testing every year * moderate osteopenia (T scores -1.50 to -1.99), BMD testing every 5 years mild osteopenia or normal BMD (T scores -1.50 and higher), BMD testing every 15 years -------- FINAL REPORT -------- Dictated By: Jaymie Garces Dictated Date: 07/17/2024 15:31 ET Assigned Physician: Jaymie Garces Reviewed and Electronically Signed By: Jaymie Garces Signed Date: 07/17/2024 15:32 ET Workstation ID: [id number] Transcribed By: Self Edit Transcribed Date: 07/17/2024 15:31 ET Narrative 07/17/2024 3:32 PM EDT BONE DENSITY (DEXA) Lumbar Spine T-score is -0.8. (SD relative to 20-29 y/o adult) Z-score is 1.6. (SD relative to age matched peers) This is considered normal by WHO criteria. Left Hip T-score is -2.2. Z-score is -0.2. This is considered osteopenia by WHO criteria. Procedure Note Jaymie Garces MD - 07/17/2024 BONE DENSITY (DEXA) Lumbar Spine T-score is -0.8. (SD relative to 20-29 y/o adult) Z-score is 1.6. (SD relative to age matched peers) This is considered normal by WHO criteria. Left Hip T-score is -2.2. Z-score is -0.2. This is considered osteopenia by WHO criteria. IMPRESSION: Impression: This patient is considered to have osteopenia by WHO criteria. Thispatient has a 7.8% risk of major osteoporotic fracture and a 2.0% risk ofhip fracture over the next 10 years. (World Health Organization FractureRisk Assessment) [facility] Department of Internal Medicine recommendsusing National Osteoporosis Foundation (NOF) guidelines in treatmentdecisions related to osteoporosis. NOF guidelines suggest consideringtreatment for postmenopausal women and men aged 50 or older presentingwith the following: History of hip or vertebral fracture. T-score = -2.5 (DXA) at the femoral neck, total hip, or spine, afterappropriate evaluation to exclude secondary causes. Low bone mass (T-score between -1.0 and -2.5 at the femoral neck or spine)AND a 10-year probability of a hip fracture = 3% OR a 10-year probabilityof a major osteoporosis-related fracture = 20% based on the [place]-adapted WHOalgorithm Please note that all treatment decisions require clinical judgment andconsideration of individual patient factors, including patientpreferences, co-morbidities, previous drug use, risk factors not capturedin the FRAX model (e.g., frailty, falls, vitamin D deficiency, increasedbone turnover, interval significant decline in bone density) and possibleunder- or over-estimation of fracture risk by FRAX. Optional alternative screening schedule based on shari Estrella., BANNERJanuary 2011 for patients with osteopenia (based on hip BMD T-score)is as follows: * advanced osteopenia (T scores -2.00 to -2.49), BMD testing every year * moderate osteopenia (T scores -1.50 to -1.99), BMD testing every 5years mild osteopenia or normal BMD (T scores -1.50 and higher), BMD testingevery 15 years -------- FINAL REPORT -------- Dictated By: Jaymie Garces Dictated Date: 07/17/2024 15:31 ET Assigned Physician: Jaymie Garces Reviewed and Electronically Signed By: Jaymie Garces Signed Date: 07/17/2024 15:32 ET Workstation ID: [id number] Transcribed By: Self Edit Transcribed Date: 07/17/2024 15:31 ET Parker Kyle MD IM DXA PROCEDURES Final Result * MG Mammo Digital Screening w Curtis bilat (07/17/2024 2:31 PM EDT) Anatomical Region Laterality Modality Breast Bilateral Mammography 07/18/2024 8:46 AM EDT Impressions 07/18/2024 8:50 AM EDT BILATERAL BREASTS: Benign, no evidence of malignancy. Normal interval follow-up is recommended in 12 months. BREAST DENSITY: B - There are scattered areas of fibroglandular density. BI-RADS CATEGORY: 2 - BENIGN RECOMMENDATION: Screening bilateral mammogram is recommended in 1 year. Mammo Location: [facility], [address] [place] [address], [id number], . -------- FINAL REPORT -------- Dictated By: Fuad Gonzales Dictated Date: 07/18/2024 08:46 ET Assigned Physician: Fuad Gonzales Reviewed and Electronically Signed By: Fuad Gonzales Signed Date: 07/18/2024 08:50 ET Workstation ID: [id number] Transcribed By: Self Edit Transcribed Date: 07/18/2024 08:46 ET Narrative 07/18/2024 8:50 AM EDT STUDY: Bilateral screening mammography with tomosynthesis and CAD TECHNIQUE: Bilateral full-field digital screening mammography is obtained and read in conjunction with computer-aided detection. Tomosynthesis as well as 2-D C view imaging were obtained. COMPARISON: Comparison made to multiple prior, most recent February 08, 2022, and most remote September 30, 2016. RIGHT BREAST: History of previous excisional biopsy. Tissue marker from previous needle core biopsy. No significant masses, suspicious calcifications or other abnormalities are seen. LEFT BREAST: No significant masses, suspicious calcifications or other abnormalities are seen. Procedure Note Fuad Gonzales MD - 07/18/2024 STUDY: Bilateral screening mammography with tomosynthesis and CAD TECHNIQUE: Bilateral full-field digital screening mammography is obtainedand read in conjunction with computer-aided detection. Tomosynthesis aswell as 2-D C view imaging were obtained. COMPARISON: Comparison made to multiple prior, most recent February, and most remote September 30, 2016. RIGHT BREAST: History of previous excisional biopsy. Tissue marker fromprevious needle core biopsy. No significant masses, suspiciouscalcifications or other abnormalities are seen. LEFT BREAST: No significant masses, suspicious calcifications or otherabnormalities are seen. IMPRESSION: BILATERAL BREASTS: Benign, no evidence of malignancy. Normal intervalfollow-up is recommended in 12 months. BREAST DENSITY: B - There are scattered areas of fibroglandular density. BI-RADS CATEGORY: 2 - BENIGN RECOMMENDATION: Screening bilateral mammogram is recommended in 1 year. Mammo Location: [facility], [address] [place] [address], [id number], . -------- FINAL REPORT -------- Dictated By: Fuad Gonzales Dictated Date: 07/18/2024 08:46 ET Assigned Physician: Fuad Gonzales Reviewed and Electronically Signed By: Fuad Gonzales Signed Date: 07/18/2024 08:50 ET Workstation ID: [id number] Transcribed By: Self Edit Transcribed Date: 07/18/2024 08:46 ET Parker Kyle MD IM BI PROCEDURES Final Result * Microalbumin creatinine urine ratio (05/21/2024 7:58 AM EST) Creatinine, Urine 75.0 mg/dL LAB CHEMISTRY METHOD 05/21/2024 10:33 AM EST [facility] Microalb, Ur 6.2 0.0 - 29.0 mg/L LAB CHEMISTRY METHOD 05/21/2024 10:33 AM EST [facility] Microalb/Creat Ratio 8 <30 mg/g creat LAB CHEMISTRY METHOD 05/21/2024 10:33 AM EST [facility] Urine Urine specimen obtained by clean catch procedure / Unknown Non-blood Collection / Unknown 05/21/2024 7:58 AM EST 05/21/2024 7:58 AM EST Abby TAFOYA LAB URINE ORDERABLES Final Resul t [facility] [address] [place] [address], [place] [phone] * Hm Diabetes Eye Exam (06/10/2023) Diabetes: Annual Retina Eye Exam Abstracted Historical Provider HEALTH MAINTENANCE Final Result * Depression Screening (05/30/2023) Depression Screening Abstracted Historical Provider HEALTH MAINTENANCE Final Result * Hepatitis C Screening (04/14/2017) Hepatitis C Screening Abstracted Historical Provider HEALTH MAINTENANCE Final Result from Last 3 Months or Most Recently Relevant to Health Maintenance Additional Health Concerns Active Problems Noted Date Diagnosed Date Autogenerated Problem 02/19/2025 Insurance [employer] [place]ICA[place] - [place] Care Teams Culture Manager Relationship Specialty Start Date End Date Parker Kyle MD [place], [place] PCP - General Internal Medicine 07/09/20
--- OUTSIDE RECORDS SUMMARY | 2025-03-21 11:22 | XMS_ITS | Encounter Summary ---
Author Organization [facility] [place] [address] Care Team Providers Care Loan Broker Name Role Phone Parker Kyle MD Primary Care Provider [phone] Encounter Details Date Type Department Care Team (Late st Contact Info) Description 01/30/2025 Results Follow-Up Endocrinology - [place] [address] [place] [phone] Abby Alberto PA [address] [place] [address] Social History Tobacco Use Types Packs/Day Years Used Date Smoking Tobacco: Never Smokeless Tobacco: Never Alcohol Use Standard Drinks/Week Comments No 0 (1 standard drink = 0.6 oz pur e alcohol) Comments No Sex and Gender Information Value Date Recorded Sex Assigned at Female 03/12/2025 9:00 AM EST Legal Sex Female 1:53 PM EST Gender Identity Female 03/12/2025 9:00 AM EST Sexual Orientation Straight 03/12/2025 9: 00 AM EST documented as of this encounter Plan of Treatment Upcoming Encounters Date Type Department Care Team (Late st Contact Info) Description 04/02/2025 11:30 AM EST Treatment [facility] [address] [phone] Ba Reyes PTA 04/05/2025 10:30 AM EST Treatment [facility] [address] [phone] Ba Reyes, HAND COLLATOR 04/09/2025 10:15 AM EST Treatment [facility] [address] [phone] Ba Reyes, HAND COLLATOR 04/11/2025 10:15 AM EST Treatment [facility] [address] [phone] Ba Reyes, HAND COLLATOR 04/15/2025 11:15 AM EST Treatment [facility] [address] [phone] Eric Torres, PT [address] [place] [address] 06/18/2025 10:45 AM EDT Office Visit Endocrinology [address] [phone] Abby Alberto PA [address] [place] [address] 07/22/2025 11:30 AM EDT Office Visit Adult Medicine [address] [phone] Parker Kyle MD [address] [place] [address] 07/23/2025 1:20 PM EDT Appointment Radiology Department - [address] [phone] documented as of this encounter Goals Goal Patient Goal Type Associated Problems Recent Progress Patient-Stated? Author feel better General Improving(01/2025 10:50 AM EST) Yes Eric Torres, PT PT STG x 8 visits from [facility] on 01/23/2025 General No Eric Torres, [...] 4-/5 PT LTG x 16 visits from eval on 01/23/2025 General Improving(01/2025 10:50 AM EST) Eric Moreno, PT Note: [...] without having to rest due to pain documented as of this encounter Visit Diagnoses Not on filedocumented in this encounter Additional Health Concerns Assessment Noted Time PHQ-9 Depression Total Score: 1 06/28/19 10:31 AM EDT A fall risk assessment has been complete d for the patient 06/27/2024 10:31 AM EDT documented as of this encounter Care Teams Loan Broker Relationship Specialty Start Date End Date Parker Kyle MD [address] [place] [phone] PCP - General Internal Medicine 07/09/20 documented as of this encounter
== END 2025-03-21 10:02 | disposition home or self-care (01) ==
LOC: HO.HPHYS 09:40
PROVIDERS: PCP Internal Medicine; Visit Provider Physician Assistant
DX: M54.16 Radiculopathy, lumbar region (principal); M47.816 Spondylosis without myelopathy or radiculopathy, lumbar region
CPT/HCPCS: 99204

== ENCOUNTER → 2025-03-21 09:40 | Outpatient (BNVA) | payer MEDICARE, MEDICAID, SELFPAY | PROVIDERS: PCP Internal Medicine; Visit Provider Physician Assistant | DX: M47.26 Other spondylosis with radiculopathy, lumbar region (principal) | CPT/HCPCS: 99202 ==